=== PATIENT | female | born 1960 | race Caucasian/White ===

== ENCOUNTER 2017-03-30 16:10 | Emergency (ER) | payer OTHER ==
[~2017-03-30] VITALS: Ht 162.6 cm; Wt 77.7 kg
[2017-03-30 16:29] VITALS: BP 155/83; PULSE 68; RESP 18; O2SAT 97
[2017-03-30] MEDS ORDERED: 0.9% Sodium Chloride 1,000 ML IV ONE (16:40)
[2017-03-30] MEDS ORDERED: Ondansetron 2 mg/mL 2 mL Inj IVPUSH ONE (16:40)
--- NOTE | 2017-03-30 16:57 | ED.REPORT ---
HPI-Trauma Minor / Fall Date of Service March 30, 2017 ED Provider: Gaudencio Winkler MD The patient is a 56 year old female who presents to the emergency department complaining of right hip/buttock pain that began after she fell at home prior to arrival. The patient slipped on cleaning fluid on the ground at home, fell backwards, and landed on her right buttock and hip. She did not hit her head or lose consciousness. Her pain radiates down the back of her leg and down the inside of her leg. The patient feels like she "pulled something." She denies any other injuries. She denies numbness, tingling or weakness. She is not taking any blood thinners. Nursing Notes Stated Complaint: FALL Chief Complaint: Extremity Trauma Nursing Notes Reviewed: Yes Allergies: Coded Allergies: No Known Allergies (Unverified , 03/30/17) General Time Seen by MD: 16:40 Chief Complaint Fall, Extremity pain Hx Obtained From: Patient Arrived By: Wheelchair Onset Occurred: Just prior to arrival Symptom Duration: Since onset Caused by: Slipped Context: Occurred at: Home injury Location: Hip right Thigh right Quality: Painful Severity: Current: Severe Severity: Maximum: Severe Recent Healthcare: No recent doctor visit, No recent hospitalization Similar Sx Previous: No Past Medical History Past Medical History Denies Past Surgical History Ankle surgery Family History Noncontributory Smoking History Unknown if Ever Smoker Social History Other Social History: Good social support, , Local resident Ambulatory Status Independent Review of Systems Musculoskeletal: Reports: Extremity pain, Joint pain, Denies: Back pain, Neck pain Neurologic: Denies: Change LOC, Focal weakness, Headache, Numbness, Syncope, Weakness Complete sys rev & neg: except as marked. Cardiovascular: Denies: Chest pain GI: Denies: Abdominal pain Physical Exam Initial Vital Signs Vital Signs (First) Date Time Temp Pulse Resp B/P Pulse Ox O2 Delivery O2 Flow Rate FiO2 03/30/17 16:29 36.5 68 18 155/83 97 Room Air Initial VS: Reviewed Respiratory: Breath sounds normal, Clear to auscultation, No respiratory distress Cardiovascular: Regular rate & rhythm, Heart sounds normal, Intact distal pulses Abdomen / GI: Soft, Non-tender, No guarding, No rebound, No distention Extremities: Vascular intact, Neuro intact, No swelling Skin: Warm, Dry, No cyanosis Psychiatric: Mood/affect normal, Behavior normal, Normal thought content General/Constitutional: Awake, Alert, Cooperative Neck: Atraumatic, Supple, Full range of motion, No swelling, Non-tender, No midline vertebral tend Head / Eyes: Atraumatic, Normocephalic, PERRL, EOMI ENT: Atraumatic, Airway patent, Mucous membranes moist Lower Extremity / Pelvis / MS: No deformity, Neurologic intact, Vascular intact Good DP and PT pulses bilaterally. Sensation intact. 5/5 dorsiflexion and plantar flexion bilaterally. LLE is completely atraumatic. RLE: There is no ecchymosis, palpable fractures or deformity. No tenderness over the right lateral hip. She is extremely tender about her proximal posterior thigh and buttock. Neurologic: Oriented X3, Speech NL, No motor deficits, No sensory deficits, Cerebellar NL, Memory NL No lateralizing deficits. Interpretation & Diagnostics Interpretation & Diagnostics: RIGHT HIP CT IMPRESSION: No acute bony injuries of the right hip region. Dictated by: Arie Dixon M.D. on 03/30/2017 at 19:00 Lab Results Interpretation Result Diagram: 03/30/17 1645 03/30/17 1645 Test 03/30/17 16:45 03/30/17 17:38 White Blood Count 8.5th/mm3 (3.8-10.1) Red Blood Count 4.33mil/mm3 (3.90-5.20) Hemoglobin 13.8g/dL (12.0-15.6) Hematocrit 39.6% (35.0-46.0) Mean Corpuscular Volume 91.5fL (81-100) Mean Corpuscular Hemoglobin 31.9pg (27.0-35.0) Mean Corpuscular Hemoglobin Concent 34.8% (32.0-37.0) Red Cell Distribution Width 12.0% (12.3-15.4) Platelet Count 264bil/L (150-400) Neutrophils (%) (Auto) 49.7% (40-74) Lymphocytes (%) (Auto) 40.1% (14-46) Monocytes (%) (Auto) 7.9% (4-12) Eosinophils (%) (Auto) 1.9% (0-5) Basophils (%) (Auto) 0.2% (0-3) Prothrombin Time 9.7sec (8.1-12.5) Prothromb Time International Ratio 0.91ratio Activated Partial Thromboplast Time 26.8sec (22.8-33.0) Sodium Level 138mEq/L (134-144) Potassium Level 4.1mEq/L (3.5-5.2) Chloride Level 98mEq/L (97-108) Carbon Dioxide Level 24mmol/L (18-29) Blood Urea Nitrogen 13mg/dL (6-24) Creatinine 0.68mg/dL (0.57-1.00) Estimat Glomerular Filtration Rate 128mL/min (>59) Glucose Level 91mg/dL (60-99) Calcium Level 9.6mg/dL (8.5-10.1) Total Bilirubin 0.2mg/dL (0.0-1.2) Aspartate Amino Transf (AST/SGOT) 27U/L (0-50) Alanine Aminotransferase (ALT/SGPT) 36U/L (0-32) Alkaline Phosphatase 59U/L (25-150) Total Protein 7.2g/dL (6.4-8.4) Albumin 4.3g/dL (3.4-5.0) Urine Color Yellow (YELLOW) Urine Appearance Clear (CLEAR,HAZY) Urine pH 7.5 (5.0-8.0) Urine Specific [place] 1.005 (1.003-1.035) Urine Protein Negativemg/dL (NEG,TRACE) Urine Glucose (UA) Negativemg/dL (NEGATIVE) Urine Ketones Negativemg/dL (NEGATIVE) Urine Occult Blood Negative (NEGATIVE) Urine Nitrite Negative (NEGATIVE) Urine Bilirubin Negative (NEGATIVE) Urine Urobilinogen Normalmg/dL (NORMAL) Urine Leukocyte Esterase Negative (NEGATIVE) Urine RBC 0-2/hpf (0-2) Urine WBC 0-5/hpf (0-5) Urine Epithelial Cells None/hpf (NONE-MOD) Urine Crystals None seen (NONE SEEN) Urine Bacteria Few/hpf (NONE-FEW) Urine Hyaline Casts None/lpf (NONE) Urine Granular Casts None seen (NONE SEEN) Urine Waxy Casts None seen (NONE SEEN) Urine Red Blood Cell Casts None seen (NONE SEEN) Urine White Blood Cell Casts None seen (NONE SEEN) Urine Mucus None seen (None Seen) Urine Trichomonas None seen (NONE SEEN) Urine Yeast None (NONE SEEN) Urinalysis Comment None X-Ray Interpretation Xray Interpretation: IMPRESSION: No acute bony injuries of the right hip region. Dictated by: Arie Dixon M.D. on 03/30/2017 at 17:30 X-Ray Ordered: Pelvis, Hip right Interpretation / Wet Read by: Interpret - Radiologist Re-Eval/Medical Decision Med Decision/Clinical Course The patient is a 56 year old female who presents to the emergency department complaining of right hip/buttock pain that began after she fell at home prior to arrival. The patient slipped on cleaning fluid on the ground at home, fell backwards, and landed on her right buttock and hip. She did not hit her head or lose consciousness. Her pain radiates down the back of her leg and down the inside of her leg. The patient feels like she "pulled something." She denies any other injuries. She denies numbness, tingling or weakness. She is not taking any blood thinners. Here in the emergency department the patient is afebrile with stable vital signs and examination as above. Notably, she is neurovascularly intact in both lower extremities without any significant objective signs of trauma. LABS: CBC unremarkable, CMP unremarkable, UA unremarkable. Pelvic x-ray shows no sign of acute fractures. RIGHT HIP CT IMPRESSION: No acute bony injuries of the right hip region. Here in the emergency room the patient was treated with Zofran, IV fluids and hydromorphone for pain given as she was significantly uncomfortable. Laboratory studies and UA were unremarkable. X-rays demonstrate no acute fracture however given her degree of pain I opted to obtain a CT scan of her hip to definitively rule out any injuries. This was unremarkable. She was treated with Toradol and thereafter reported that she started feeling better. She admits that she is on a very high dose of oxycodone currently at 90 mg daily. I wonder if she may be experiencing an exaggerated pain response due to her long-term opiate use. At this time the overall presentation seems most consistent with contusion/muscle sprain. I see no evidence of definite ligamentous injury and now that her pain is treated she is able to stand and ambulate. Given her degree of pain I have referred her to orthopedic surgery for further evaluation should she continue to have issues. I feel she is appropriate for discharge. Prior to discharge follow-up and return precautions were reviewed in detail with the patient who verbalized understanding and agreement with the plan. The patient was discharged in stable condition. Source of Hx: Family Re-Evaluation/Progress #1: Time of Eval: 18:32 Re-Evaluation/Progress Note: Discussed plan for CT scan of her hip. Re-Evaluation/Progress #2: Time of Eval: 19:32 Re-Evaluation/Progress Note: Rechecked the patient. Discussed results, diagnosis, and plan for discharge. Counseled Regarding: Diagnosis, Lab results, Need for follow-up, When/why to return to ED Discharge & Departure Impression: Primary Impression: Hip pain Laterality: right Qualified Code: M25.551 - Pain in right hip Additional Impressions: Muscle strain Fall from ground level long-term prescription opiate use Disposition: Home Discharge Condition All VS Reviewed: Yes Condition: Stable Patient Instructions: Muscle Strain (ED) Additional Instructions: Thank you for seeking care at the emergency room. It is difficult for us to make definitive diagnoses in the ED but we believe that you are experiencing pain due to a muscle strain. Our primary goal today in the ED was to evaluate you for any life-threatening conditions. Your evaluation was reassuring. Continue to take the Percocet and OxyContin as previously prescribed for your pain. Take 600 mg ibuprofen every 8 hours over the next 7 days. You should also be stretching and you can try applying ice if it helps. Use the crutches as needed and bear weight as tolerable. We have given you a referral to an orthopedic surgeon. Call tomorrow to schedule an appointment. You should return to the ED immediately if you develop increased pain, numbness , weakness, or any other concerning signs or symptoms. Thank you for letting us partake in your care today. Referrals: Maritza Liu PA-C (PCP) Olman Arias DO Scribe Attestation Portions of this note were transcribed by Stella Torres. I, Dr. Winkler personally performed the history, physical exam and medical decision-making; I reviewed and confirmed the accuracy of the information in the transcribed note. Signed by: Maribell Chung 03/30/2017 at 1950. copies to: Olman Arias DO; Maritza Liu PA-C, Beck O MD March 30, 2017 16:57 Stella Torres March 30, 2017 16:59
[2017-03-30] MEDS: HYDROmorphone 0.5 mg/0.5 mL iSecure Syringe IVPUSH PRN ×2 (16:58→18:07)
[2017-03-30 17:00] LABS: BASOPHILS % (AUTO) 0.2 % (0-3); EOSINOPHILS % (AUTO) 1.9 % (0-5); MONOCYTES % (AUTO) 7.9 % (4-12); Mean Corpuscular Hemoglobin 31.9 pg (27.0-35.0); Mean Corpuscular Volume 91.5 fL (81-100); NEUTROPHILS % (AUTO) 49.7 % (40-74); Platelet Count 264 bil/L (150-400)
[2017-03-30 17:16] LABS: INR 0.91 ratio
--- NOTE | 2017-03-30 17:33 | DRSVH ---
PROCEDURE: X-RAY PELVIS W/LAT HIP (RT) ([id number]) INDICATIONS: 56 year-old female with right hip pain after fall. TECHNIQUE: AP pelvis with lateral view(s) of the right hip(s). COMPARISON: None. FINDINGS: Bones: No fractures or dislocations. Pelvic ring appears intact. There is lumbar spine degenerativ e disc narrowing. No suspicious bony lesions. Soft tissues: The visualized bowel gas pattern is normal. No suspicious soft tissue calcifications. Central abdominal surgical clips are present. IMPRESSION: No acute bony injuries of the right hip region. Dictated by: Arie Dixon M.D. on 03/30/2017 at 17:30 Approved by: Arie Dixon M.D. on 03/30/2017 at 17:31
[2017-03-30 18:29] LABS: APPEARANCE,URINE CLEAR (CLEAR,HAZY); COLOR,URINE YELLOW (YELLOW); OCCULT BLOOD,URINE NEGATIVE (NEGATIVE); PH,URINE 7.5 (5.0-8.0); UROBILINOGEN,URINE NORMAL (NORMAL)
--- NOTE | 2017-03-30 19:06 | DRSVH ---
PROCEDURE: CT HIP RIGHT W/O CONTRAST ([id number]) INDICATIONS: 56 year-old female with right hip pain and inability to bear weight after trauma. Assess for occult fracture. TECHNIQUE: Noncontrast 3 mm axial sections acquired through the bony pelvis. Additional 3 mm axial sections acq uired through the symptomatic hip joint, with coronal and sagittal reformats. COMPARISON: , CR, XR PELVIS W LATERAL HIP RT, 03/30/2017, 16:59. FINDINGS: Image quality: Excellent. Bones: No acute fractures or dislocations. No suspicious lytic bony lesions. Incidental bilateral bon e islands are noted within the ischial rami. No joint degeneration. There is L4-L5 disc degeneration. Soft tissues: Bladder wall thickness is normal. There is sigmoid colon diverticulosis. No free pelvic fluid. No inguinal hernias or adenopathy. 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 IMPRESSION: No acute bony injuries of the right hip region. Dictated by: Arie Dixon M.D. on 03/30/2017 at 19:00 Approved by: Arie Dixon M.D. on 03/30/2017 at 19:04
[2017-03-30] MEDS ORDERED: HYDROmorphone 1 mg/mL Inj IVPUSH ONE (19:35)
[2017-03-30 20:02] VITALS: BP 139/81; PULSE 68; RESP 18; O2SAT 94
== END 2017-03-30 20:02 | disposition home or self-care (01) ==
LOC: SED 16:10
DX: S76.011A Strain of muscle, fascia and tendon of right hip, initial encounter (principal); W01.0XXA Fall on same level from slipping, tripping and stumbling without subsequent striking against object, initial encounter; Y93.89 Activity, other specified; Y92.019 Unspecified place in single-family (private) house as the place of occurrence of the external cause; Y99.8 Other external cause status; Z79.891 Long term (current) use of opiate analgesic
CPT/HCPCS: 36415; 73501; 73700; 80053; 81001; 85025; 85610; 85730; 86850; 96361; 96372; 96374; 96375; 96376; 99285; J1170; J1885; J2405; J7030